=== PATIENT | male | born 1955 | race Caucasian/White ===

== ENCOUNTER 2021-01-10 06:44 | Observation (INO) | payer OTHER ==
[~2021-01-10] VITALS: Ht 180.3 cm; Wt 113.4 kg
[2021-01-10] MEDS ORDERED: AMLO10 PO (08:03)
[2021-01-10] MEDS ORDERED: GLUCOPHAGE1000 M1 PO (08:03)
[2021-01-10] MEDS ORDERED: LOVA40 PO (08:03)
[2021-01-10] MEDS ORDERED: LISI20 PO (08:04)
[2021-01-10] MEDS ORDERED: GLIP10 PO (08:04)
[2021-01-10] MEDS ORDERED: WARF5 PO ×2 (08:04→14:06)
[2021-01-10] MEDS ORDERED: ATEN100 PO (08:04)
[2021-01-10] MEDS ORDERED: GABA300 PO (08:04)
[2021-01-10] MEDS ORDERED: Aspirin EC81 MG PO (08:05)
[2021-01-10] MEDS ORDERED: GLUC500 PO (08:05)
[2021-01-10] MEDS ORDERED: THERA-D2000 UNIT PO (08:05)
[2021-01-10 08:23] LABS: BASOPHILS ABSOLUTE AUTO 0.05 K/mm3 (0.00-0.23); BASOPHILS PERCENT AUTO 0 % (0-2); EOSINOPHILS ABSOLUTE AUTO 0.18 K/mm3 (0.00-0.68); EOSINOPHILS PERCENT AUTO 1 % (0-6); Hematocrit 48.1 % (37.0-53.0); Hemoglobin 16.4 g/dL (13.5-17.5); IMMATURE GRAN ABSOLUTE AUTO 0.09 K/mm3 (0.00-0.10); IMMATURE GRAN PERCENT AUTO 1 % (0-1); LYMPHOCYTES ABSOLUTE AUTO 1.25 K/mm3 (0.84-5.20); LYMPHOCYTES PERCENT AUTO 9 % (21-46); MONOCYTES ABSOLUTE AUTO 1.39 K/mm3 (0.16-1.47); MONOCYTES PERCENT AUTO 10 % (4-13); Mean Corpuscular HGB Conc 34.1 g/dL (31.5-36.5); Mean Corpuscular Volume 88 fL (80-100); Mean Platelet Volume 9.5 fL (9.1-12.4); NEUTROPHILS ABSOLUTE AUTO 10.92 K/mm3 (1.96-9.15); NEUTROPHILS PERCENT AUTO 79 % (41-73); Platelet Count 190 K/mm3 (150-400); RDW Coefficient Variation 13.4 % (11.7-14.2); RDW Standard Deviation 43.3 fL (35.1-46.3); Red Blood Cell Count 5.46 M/mm3 (4.30-5.90); White Blood Cell Count 13.88 K/mm3 (4.00-11.30)
[2021-01-10 08:34] LABS: Alanine Aminotransfer (ALT/SGP 23 U/L (12-78); Albumin, Blood 4.2 g/dL (3.4-5.0); Albumin/Globulin Ratio 1.2 (0.8-1.8); Alk Phos 57 U/L (50-136); Anion Gap 8 mmol/L (6-16); Aspartate Aminotrans (AST/SGOT 15 U/L (12-37); Bilirubin, Total 0.8 mg/dL (0.1-1.0); Blood Urea Nitrogen 21 mg/dL (8-24); Bun/Creatinine Ratio 18.4 (12.0-20.0); CO2, Blood 23 mmol/L (21-32); Calcium, Blood 9.5 mg/dL (8.5-10.1); Chloride, Blood 106 mmol/L (98-108); Creatinine, Blood 1.14 mg/dL (0.60-1.20); Globulin, Blood 3.4 g/dL (2.2-4.0); Glomerular Filtration Rate >60 (60-); Glucose, Blood 194 mg/dL (70-99); Sodium, Blood 137 mmol/L (136-145); Total Protein, Blood 7.6 g/dL (6.4-8.2)
[2021-01-10 11:37] LABS: Source, Urine Clean Catch
[2021-01-10 11:42] LABS: Bilirubin, Urine Neg (Neg); Blood, Urine 3+ (Neg); Glucose Qualitative, Urine Neg (Neg); Ketones, Urine 3+ (Neg); Leukocyte Esterase, Urine Neg (Neg); Nitrite, Urine Neg (Neg); Protein, Urine 2+ (Neg); Urobilinogen, Urine NORM (Normal)
[2021-01-10 11:53] LABS: Appearance, Urine Clear (Clear); Bacteria Not Seen /hpf; Color, Urine Yellow (P-Yellow); Squamous Epithelial Cells Rare /hpf (Few); White Blood Cells, Urine 0-2 /hpf (0-5)
[2021-01-10] MEDS ORDERED: METFORMIN HCL1000 M7 PO (13:58)
[2021-01-10] MEDS ORDERED: GLIP5 PO (13:59)
[2021-01-10 15:26] LABS: International Normalized Ratio 2.76; Prothrombin Time Results 28.1 Sec (9.7-11.5)
[2021-01-10 15:50] LABS: SARS-Cov-2 (COVID-19) PCR, MMC NEGATIVE (NEGATIVE)
--- NOTE | 2021-01-10 16:00 | NUR ---
PT IS ALERT ORIENTED AND INDEPENDENT IN THE ROOM. PT CAME IN FOR KIDNEY STONES THAT IS BLOCKING HIS URETHRA. PT DENIES ANY BURNING OR BLOOD IN URINE. PT HAVE MULTIPLE HX OF STONES IN THE PAST AND HEART STENTS. PT ALSO HAS A HX OF DVT. PT SUPPOSED TO HAVE A SURGERY TODAY OR STENT PLACE WITH DR ORTEGA; HOWEVER HE TOOK HIS WARFARIN TODAY AND AFRAID OF BLEEDING; THEREFORE WILL DO IT TOMORROW. PT LIVES WITH AT HOME. PT VERY FRUSRTRATED AND IRRITATED ABOUT THE FACT THAT HE HAS TO TAKE HOSPITAL MEDICATIONS; THIS RN, AND DISTRIBUTION CENTER ADMINISTRATOR; AND DR EDUCATED HIM ABOUT THE POLICY. MEDICATED PER EMAR FOR PAIN. AFTER THE PROCEDURE HERE; THE PT WILL FU TO UROLOGIST FOR TAKING OUT THE STONES. PT ORIENTED IN THE ROOM; BED IS IN THE LOWEST POSITION AND CALL LIGHT WITHIN REACH
[2021-01-11 04:36] LABS: BASOPHILS ABSOLUTE AUTO 0.05 K/mm3 (0.00-0.23); BASOPHILS PERCENT AUTO 1 % (0-2); EOSINOPHILS ABSOLUTE AUTO 0.06 K/mm3 (0.00-0.68); EOSINOPHILS PERCENT AUTO 1 % (0-6); Hematocrit 45.8 % (37.0-53.0); Hemoglobin 15.2 g/dL (13.5-17.5); IMMATURE GRAN ABSOLUTE AUTO 0.05 K/mm3 (0.00-0.10); IMMATURE GRAN PERCENT AUTO 1 % (0-1); LYMPHOCYTES ABSOLUTE AUTO 0.84 K/mm3 (0.84-5.20); LYMPHOCYTES PERCENT AUTO 8 % (21-46); MONOCYTES ABSOLUTE AUTO 1.01 K/mm3 (0.16-1.47); MONOCYTES PERCENT AUTO 10 % (4-13); Mean Corpuscular HGB 29.6 pg (26.0-34.0); Mean Corpuscular HGB Conc 33.2 g/dL (31.5-36.5); Mean Corpuscular Volume 89 fL (80-100); Mean Platelet Volume 9.9 fL (9.1-12.4); NEUTROPHILS ABSOLUTE AUTO 8.63 K/mm3 (1.96-9.15); NEUTROPHILS PERCENT AUTO 81 % (41-73); Platelet Count 164 K/mm3 (150-400); RDW Coefficient Variation 13.3 % (11.7-14.2); RDW Standard Deviation 43.7 fL (35.1-46.3); Red Blood Cell Count 5.14 M/mm3 (4.30-5.90); White Blood Cell Count 10.64 K/mm3 (4.00-11.30)
[2021-01-11 04:59] LABS: Bun/Creatinine Ratio 16.2 (12.0-20.0); Calcium, Blood 8.7 mg/dL (8.5-10.1); Creatinine, Blood 1.3 mg/dL (0.60-1.20); Potassium, Blood 4.2 mmol/L (3.5-5.5)
--- NOTE | 2021-01-11 06:19 | NUR ---
SHIFT SUMMARY: AOX3, INDEPENDENT. LEFT FLANK PAIN THAT SPIKED IN THE NIGHT, WITH ROCKING AND SWEATING. MD WAS CALLED AND DILUDID WAS SWITCHED TOIV 1-2MG. GAVE 2MG, WHICH RELEIVED HIS PAIN. HE SLEPT IN RECLEINER FOR SHORT PERIOD WHEN WAS ABLE TO LAY DOWN. GAVE 1MG OF DILAUDID THIS AM. NO NAUSEA SINCE SPIKE OF PAIN. SLEPT GOOD AFTER THAT. VSS/AFEBRILE. CREATINE 1.3 THIS AM GFR 58. GOOD APPETITE. NO BLOOD IN URINE NO BURNING. WILL CONTINUE TO MONITOR. CALL LIGHT IN REACH.
[2021-01-11 12:31] LABS: International Normalized Ratio 3.72; Prothrombin Time Results 37.3 Sec (9.7-11.5)
--- NOTE | 2021-01-11 13:03 | NUR ---
CARE COORDINATION REFERRAL - ADMIT: 01/10/21 DISCHARGE: DX: OBSTRUCTED KIDNEY STONE CC: [facility] CALL: PT AT [phone] (1 WEEK F/U WITH PCP) RESIDENCE: HOME WITH SPOUSE CAREGIVER: NORI DE LA GARZA, SPOUSE / PARTNER, DX: AFIB, HTN, KIDNEY STONE, MORBID OBESITY, PVD, DM-TYPE 2, SEE LIST DME: DM SUPPLIES CCM: NONE HOME HEALTH: NONE SUMMARY: 01/11/21- PER CHART REVIEW, DR. ORTEGA CONSULTED ON PT. WILL HOLD COUMADIN AND PLAN FOR PROCEDURE TODAY TO PLACE URETERAL STENT. PER DR. QUARLES, PT POTENTIALLY COULD D/C HOME TODAY AFTER STENT IS PLACED BY DR. ORTEGA. MET WITH PT WHO REPORTS THAT PRIOR TO COMING INTO THE HOSPITAL, HE WAS INDEPENDENT, NO CAREGIVER AND NO HOME HEALTH. PT LIVES WITH HIS IN THEIR [place] HOME. HE IS ABLE TO USE THE STAIRS AND STATES THAT HE HAS ARTHRITIS IN HIS HIP WHICH MAKES IT HARD TO USE THEM SOMETIMES. PT REPORTS THAT HE HAS RUNNING WATER, HEAT, ELECTRICITY AND SEWAGE. NO BARRIERS IDENTIFIED IN THE HOME. PT OR HIS ARE ABLE TO TAKE HIM TO HIS APPT AND COIL ASSEMBLER HIS MEDICATIONS. PCP IS DON AND NEXT OF KIN IS HIS . NO NEED FOR DME, HE IS ABLE TO MANAGE HIS OWN MEDICATIONS, PHARMACY IS [facility], HE IS ABLE TO COOK AND CLEAN WITH HIS . PLAN IS TO FOLLOW UP WITH PCP IN 1 WEEK S/P DISCHARGE. -KONG
--- NOTE | 2021-01-11 18:28 | NUR ---
SHIFT SUMMARY PT ALERT AND AT BEDSIDE; PT FRUSTRATED BECAUSE OF DELAYED SURGERY TODAY DUE TO HIS ELEVATED INR; PT ALSO NOT HAPPY ABOUT NOT RECEIVING HIS METFORMIN; CALLED DR WEISS; HOWEVER DR WEISS STATED THAT BECAUSE OF PT KIDNEY FUNCTION HE DECIDED TO HOLD OFF ON METFORMIN OR DM MEDS UNTIL THE PROCEDURE IS DONE. DR ORTEGA CAME UP AND TALKED TO PT AT BEDSIDE. PT MEDICATED FOR PAIN PER AND PER EMAR. ALSO MEDICATED FOR NAUSEA AND VOMITING. PT CAN HAVE SOMETHING TONIGHT, BUT TOMORROW NPO AFTER BREAKFAST FOR SURGERY. BED IS IN THE LOWEST POSITION AND CALL LIGHT WITHIN REACH
--- NOTE | 2021-01-12 06:23 | NUR ---
SHIFT SUMMARY: AOX3, INDEPENDENT. FAIR APPETITE, GOOD HYDRATION. INCREASE IN PAIN OVER NIGHT. MD NOTIFIED GAVE 1 TIME DOSE OF TORDOL WITH SOME TYLENOL. VERY LITTLE RELEIF. ZOFRAN CHANGED TO EVERY 4 HOURS DUE TO INCREASE NAUSEA. MD CALLED BACK TO DISCUSS PAIN MANGEMENT. CHANGE IN DILUDID TO PO AND EVERY 3 HOURS ALTERNATE WITH TYLENOL. PAIN MEDICATION EVERY 2 HOURS T/O NIGHT HAS GOTTEN HIM ON A REGIMEN THAT IS KEEPING PAIN AT BAY. WHEN IN PAIN HE DOES GET ANGRY AND TENDS TO YELL LAST NIGHT, HE WAS STANDING LEANING HEAD FIRST INTO THE WALL, GRUNTING AND POOR SWEAT. STATES HE DOES NOT WANT TO FEEL THAT WAY. KNOWS TO BE NPO AFTER BREAKFAST. VS WNL, AFEBRILE. ANTIBOTIC GIVEN. WILL REPORT TO DAYSHIFT. CALL LIGHT IN REACH AND USED APPROPRIATELY.
[2021-01-12 11:40] LABS: International Normalized Ratio 2.98; Prothrombin Time Results 30.3 Sec (9.7-11.5)
--- NOTE | 2021-01-12 13:14 | NUR ---
01/12/21- per chart review with Dr. Childers, pt is still waiting to get his stent placement by Dr. Abreu. Pt will be able to d/c once he has procedure. Pt could potentially d/c today or tomorrow. -herman
== END 2021-01-12 17:48 | disposition home or self-care (01) ==
LOC: ER 06:44 → MEDS 06:45 → ER 14:19 → MEDS 14:19
PROVIDERS: Emergency Medicine; Physician Assistant; Radiology Diagnostic Radiology; ADMIT Internal Medicine
DX: N13.2 Hydronephrosis with renal and ureteral calculous obstruction (principal); I10 Essential (primary) hypertension; E78.5 Hyperlipidemia, unspecified; I25.10 Atherosclerotic heart disease of native coronary artery without angina pectoris; E11.51 Type 2 diabetes mellitus with diabetic peripheral angiopathy without gangrene; I48.91 Unspecified atrial fibrillation; D86.9 Sarcoidosis, unspecified; N17.9 Acute kidney failure, unspecified; Z79.84 Long term (current) use of oral hypoglycemic drugs; Z79.01 Long term (current) use of anticoagulants; Z87.442 Personal history of urinary calculi; Z20.822 Contact with and (suspected) exposure to COVID-19
CPT/HCPCS: 36415; 74176; 76770; 80048; 80053; 81001; 82947; 85025; 85610; 96365; 96366; 96374; 96375; 96376; 99285-25; A9270; G0378; J0692; J1170; J1885; J2405; J7030; U0004

== ENCOUNTER → 2021-01-15 | Outpatient (CLI) | payer OTHER ==
[~2021-01-15] MED LIST: AMLO10 PO; ATEN100 PO; Aspirin EC81 MG PO; GABA300 PO; GLIP10 PO; GLIP5 PO; GLUC500 PO; GLUCOPHAGE1000 M1 PO; LISI20 PO; LOVA40 PO; METFORMIN HCL1000 M7 PO; THERA-D2000 UNIT PO; WARF5 PO
[2021-01-15 16:17] LABS: Hematocrit 45.6 % (37.0-53.0); Hemoglobin 15.1 g/dL (13.5-17.5); Mean Corpuscular HGB 29.5 pg (26.0-34.0); Mean Corpuscular HGB Conc 33.1 g/dL (31.5-36.5); Mean Corpuscular Volume 89 fL (80-100); Mean Platelet Volume 9.7 fL (9.1-12.4); Platelet Count 220 K/mm3 (150-400); RDW Coefficient Variation 12.9 % (11.7-14.2); RDW Standard Deviation 42.5 fL (35.1-46.3); Red Blood Cell Count 5.12 M/mm3 (4.30-5.90); White Blood Cell Count 11.66 K/mm3 (4.00-11.30)
[2021-01-15 16:37] LABS: Bun/Creatinine Ratio 12.8 (12.0-20.0); Calcium, Blood 8.8 mg/dL (8.5-10.1); Creatinine, Blood 1.48 mg/dL (0.60-1.20); Potassium, Blood 4.3 mmol/L (3.5-5.5)
[2021-01-15 16:39] LABS: BASOPHILS PERCENT MAN 0 % (0-2); EOSINOPHILS ABSOLUTE MAN 0.34 K/mm3 (0.00-0.68); EOSINOPHILS PERCENT MAN 3 % (0-6); LYMPHOCYTES ABSOLUTE MAN 1.28 K/mm3 (0.84-5.20); LYMPHOCYTES PERCENT MAN 11 % (21-46); MONOCYTES ABSOLUTE MAN 1.86 K/mm3 (0.16-1.47); MONOCYTES PERCENT MAN 16 % (4-13); NEUTROPHILS ABSOLUTE MAN 8.16 K/mm3 (1.96-9.15); SEG NEUTROPHILS PERCENT MAN 70 % (41-73); TOTAL CELLS COUNTED 100
[2021-01-16 08:29] LABS: International Normalized Ratio 1.33; Prothrombin Time Results 14.1 Sec (9.7-11.5)
== END | disposition home or self-care (01) ==
LOC: LAB 15:55 → LAB SHORT 15:55
PROVIDERS: Radiology Diagnostic Radiology
DX: Z01.812 Encounter for preprocedural laboratory examination (principal); Z79.01 Long term (current) use of anticoagulants; Z51.81 Encounter for therapeutic drug level monitoring; N13.30 Unspecified hydronephrosis
CPT/HCPCS: 80048; 85007; 85027; 85610

== ENCOUNTER 2021-01-16 10:42 | Day surgery (SDC) | payer OTHER ==
[~2021-01-16] VITALS: Ht 180 cm; Wt 113.0 kg
--- NOTE | 2021-01-16 14:20 | NUR ---
DR ORTEGA BY TO DISCUSS PLAN OF CARE WITH PT/, PLAN IS TO HOLD COUMADIN FOR URO PROCEDURE TOMORROW AM WITH UROLOGIST, DR ORTEGA WROTE SCRIPT FOR PAIN MEDS, PT DRESSED, IV DC'D INTACT, NEHP TUBE CAPPED, DRESSING INSTACT, PT AMB WELL TO BTR AND CHOOSES TO AMB OUT WITH DRIVING PT HOME
== END 2021-01-16 14:00 | disposition home or self-care (01) ==
LOC: MHTC 10:42
DX: N13.30 Unspecified hydronephrosis (principal)
CPT/HCPCS: 50695; 99152; 99153; C1729; C1769; C1887; C1894; C2617; J2250; J3010; J7040; Q9967